=== PATIENT | female | born 1945 | race Caucasian/White ===

== ENCOUNTER → 2017-09-24 | Outpatient (CLI) | payer MEDICARE ==
[~2017-09-24] MED LIST: AEC81 PO; ALEN70TA47 PO; FOLI1TAB15 PO; LEVO25TA54 PO; LEVO500T2 PO; METO50TA18 PO; MYCO500T5 PO; PANT40TA PO; PRAV40TA3 PO; QUIN324C10 PO
== END | disposition home or self-care (01) ==
LOC: RAH 13:35
PROVIDERS: ATTEND Internal Medicine
DX: M47.896 Other spondylosis, lumbar region (principal); M41.86 Other forms of scoliosis, lumbar region; M54.6 Pain in thoracic spine; M25.552 Pain in left hip
CPT/HCPCS: 72070; 72100; 73502

== ENCOUNTER 2017-11-07 12:31 | Emergency (ER) | payer MEDICARE ==
[2017-11-07] MEDS ORDERED: CEFTRIAXONE SODIUM 1 GM ONE (13:02)
[2017-11-07] MEDS ORDERED: SODIUM CHLORIDE 0.9% 1000ML 2,000 ML IV ONE (13:02)
[2017-11-07] MEDS ORDERED: ACETAMINOPHEN 325 MG TAB ONE (13:03)
[2017-11-07 13:30] LABS: BASOPHILS % (AUTO) 0.4 % (0.0-5.0); EOSINOPHILS % (AUTO) 0.1 % (0.0-8.0); LYMPHOCYTES % (AUTO) 6.6 % (21.0-51.0); MEAN CORPUSCULAR HEMOGLOBIN 28.7 pg (27.0-33.0); MEAN CORPUSCULAR HGB CONC 33.4 g/dL (32.0-36.0); MEAN CORPUSCULAR VOLUME 85.8 fL (79-99); MONOCYTES % (AUTO) 6.5 % (3.0-13.0); NEUTROPHILS % (AUTO) 86.4 % (40.0-77.0); PLATELET COUNT (AUTO) 285 K/uL (130-400); RED BLOOD CELL COUNT(AUTO) 3.96 MIL/uL (4.00-5.50); RED CELL DISTRIBUTION WIDTH 14.1 % (11.0-15.5); WHITE BLOOD COUNT (AUTO) 9.1 K/uL (4.8-10.8)
[2017-11-07 13:30] LABS: APPEARANCE,URINE Turbid (CLEAR); BILIRUBIN,URINE Negative (NEGATIVE); COLOR,URINE Yellow (YELLOW); GLUCOSE, URINE (UA) Negative (NEGATIVE); KETONES,URINE 40 mg/dL (NEGATIVE); LEUKOCYTE ESTERASE ,URINE Large (NEGATIVE); NITRATE,URINE Positive (NEGATIVE); OCCULT BLOOD,URINE Small (NEGATIVE); PH,URINE 7.5 (5.0-8.0); PROTEIN,URINE POS 2+ (NEGATIVE)
[2017-11-07 13:45] LABS: WBC,URINE TNTC /HPF (0-1)
[2017-11-07 13:46] LABS: BACTERIA,URINE Moderate /HPF (None Seen); SQUAMOUS EPITHELIAL CELL,UR Rare /HPF (0-2)
[2017-11-07 13:50] LABS: CREATININE 1.1 mg/dL (0.5-1.5); POTASSIUM 3.7 mmol/L (3.5-5.1)
[2017-11-07 14:03] LABS: ALBUMIN 3.3 g/dL (3.5-5.0); BILIRUBIN,TOTAL 0.4 mg/dL (0.2-1.0); CREATINE KINASE MB 0.7 ng/mL (0.5-3.6); TOTAL PROTEIN, SERUM 8.9 g/dL (6.0-8.3)
== END 2017-11-07 16:03 | disposition home or self-care (01) ==
LOC: EDH 12:31
DX: N10 Acute pyelonephritis (principal); E11.9 Type 2 diabetes mellitus without complications; I10 Essential (primary) hypertension; I25.2 Old myocardial infarction; I48.91 Unspecified atrial fibrillation; Z86.73 Personal history of transient ischemic attack (TIA), and cerebral infarction without residual deficits; Z88.2 Allergy status to sulfonamides; Z88.8 Allergy status to other drugs, medicaments and biological substances
CPT/HCPCS: 36415; 71045; 74176; 80053; 81001; 82550; 82553; 83605; 84484; 84702; 85025; 87040 ×2; 87186; 93005; 96374; 99285; J0696; J7030

== ENCOUNTER 2017-11-09 09:46 | Inpatient (IN) | payer MEDICARE ==
[~2017-11-09] VITALS: Ht 152.4 cm; Wt 50.8 kg
[2017-11-09 10:59] LABS: APPEARANCE,URINE Cloudy (CLEAR); BASOPHILS % (AUTO) 1.1 % (0.0-5.0); BILIRUBIN,URINE Negative (NEGATIVE); COLOR,URINE Yellow (YELLOW); EOSINOPHILS % (AUTO) 0.4 % (0.0-8.0); GLUCOSE, URINE (UA) Negative (NEGATIVE); HEMATOCRIT 31.5 % (36-48); KETONES,URINE >=80 mg/dL (NEGATIVE); LEUKOCYTE ESTERASE ,URINE Small (NEGATIVE); LYMPHOCYTES % (AUTO) 34.2 % (21.0-51.0); MEAN CORPUSCULAR HEMOGLOBIN 28.4 pg (27.0-33.0); MEAN CORPUSCULAR HGB CONC 33.3 g/dL (32.0-36.0); MEAN CORPUSCULAR VOLUME 85.2 fL (79-99); MONOCYTES % (AUTO) 33.8 % (3.0-13.0); NEUTROPHILS % (AUTO) 30.5 % (40.0-77.0); NITRATE,URINE Negative (NEGATIVE); NUCLEATED RED BLOOD CELLS 0.1 % (0.0-0.19); OCCULT BLOOD,URINE Small (NEGATIVE); PLATELET COUNT (AUTO) 224 K/uL (130-400); PROTEIN,URINE Trace (NEGATIVE)
[2017-11-09 11:04] LABS: WHITE BLOOD COUNT (AUTO) 1.1 K/uL (4.8-10.8)
[2017-11-09] MEDS ORDERED: SODIUM CHLORIDE 0.9% 1000ML 1,000 ML IV ONE ×2 (11:10→14:45)
[2017-11-09 11:14] LABS: CREATININE 0.9 mg/dL (0.5-1.5); POTASSIUM 3.4 mmol/L (3.5-5.1)
[2017-11-09 11:20] LABS: ALBUMIN 2.5 g/dL (3.5-5.0); BILIRUBIN,TOTAL 0.2 mg/dL (0.2-1.0)
[2017-11-09 11:37] LABS: RBC,URINE 0-1 /HPF (0-1)
[2017-11-09 11:38] LABS: BACTERIA,URINE Few /HPF (None Seen); MUCUS,URINE Moderate LPF (None Seen); SQUAMOUS EPITHELIAL CELL,UR Few /HPF (0-2)
[2017-11-09 11:39] LABS: AMORPHOUS SEDIMENT,UR Few /LPF (None Seen)
[2017-11-09] MEDS ORDERED: LEVOFLOXACIN 500 MG/D5W 100 ML 100 ML ONE (14:45)
[2017-11-09 15:20] VITALS: BP 152/81
[2017-11-09 16:20] VITALS: BP 140/91
[2017-11-09 16:30] VITALS: BP 132/72
[2017-11-09] MEDS: SODIUM CHLORIDE 0.9% 1000ML 1,000 ML IV SCH (17:45)
[2017-11-09] MEDS ORDERED: PHARMACY COMMUNICATION MISC SCH (19:45)
[2017-11-09 20:10] VITALS: BP 146/87
[2017-11-09] MEDS: TBO-FILGRASTIM 480 MCG/0.8 ML ML SQ SCH (21:16)
[2017-11-09 23:50] VITALS: BP 138/68
[2017-11-10 03:53] VITALS: BP 124/70
[2017-11-10] MEDS: SODIUM CHLORIDE 0.9% 1000ML 1,000 ML IV SCH ×2 (07:08→21:12)
[2017-11-10 07:58] VITALS: BP 125/81
[2017-11-10] MEDS: LEVOFLOXACIN 500 MG/D5W 100 ML 100 ML IV SCH (08:25)
[2017-11-10] MEDS ORDERED: QUIN324C10 PO (11:05)
[2017-11-10] MEDS ORDERED: AEC81 PO ×2 (11:05)
[2017-11-10] MEDS ORDERED: METO50TA18 PO (11:05)
[2017-11-10] MEDS ORDERED: MYCO500T5 PO ×2 (11:05)
[2017-11-10] MEDS ORDERED: LEVO25TA54 PO (11:05)
[2017-11-10] MEDS ORDERED: FOLI1TAB15 PO (11:05)
[2017-11-10] MEDS ORDERED: ALEN70TA47 PO (11:05)
[2017-11-10] MEDS ORDERED: PRAV40TA3 PO (11:05)
[2017-11-10 11:40] VITALS: BP 113/62
[2017-11-10] MEDS ORDERED: ACETAMINOPHEN 325 MG TAB PO PRN (14:15)
[2017-11-10] MEDS ORDERED: POTASSIUM CHLORIDE 20MEQ/100ML 100 ML IV PRN (14:15)
[2017-11-10] MEDS ORDERED: POTASSIUM CHLORIDE 10% ELIXIR 20 MEQ/15 ML UDCUP PO PRN (14:15)
[2017-11-10] MEDS ORDERED: ONDANSETRON HCL 4 MG/2 ML VIAL IVP PRN (14:15)
[2017-11-10] MEDS ORDERED: HYDRALAZINE HCL 20 MG/ML VIAL IV PRN (14:15)
[2017-11-10] MEDS ORDERED: LIDOCAINE HCL-MPF 1% 2ML VIAL IVP PRN (14:15)
[2017-11-10] MEDS ORDERED: QUININE SULFATE 324 MG PO PRN (14:58)
[2017-11-10 16:45] VITALS: BP 123/70
[2017-11-10 19:48] VITALS: BP 135/66
[2017-11-10] MEDS: MYCOPHENOLATE MOFETIL 250 MG CAPSULE PO SCH (21:00)
[2017-11-10] MEDS: ATORVASTATIN CALCIUM 10 MG TABLET PO SCH (21:09)
[2017-11-10] MEDS: METOPROLOL TARTRATE 25 MG TAB PO SCH (21:10)
[2017-11-10] MEDS: ENOXAPARIN SODIUM 40 MG/0.4 ML SYRINGE SQ SCH (21:12)
[2017-11-10] MEDS: TBO-FILGRASTIM 480 MCG/0.8 ML ML SQ SCH (21:12)
[2017-11-11] VITALS (7 sets, daily range): BP systolic 107–151; BP diastolic 53–74
[2017-11-11 05:58] LABS: BASOPHILS % (AUTO) 0.2 % (0.0-5.0); EOSINOPHILS % (AUTO) 0.3 % (0.0-8.0); HEMATOCRIT 31.6 % (36-48); LYMPHOCYTES % (AUTO) 5.7 % (21.0-51.0); MEAN CORPUSCULAR HEMOGLOBIN 28.9 pg (27.0-33.0); MEAN CORPUSCULAR HGB CONC 34.2 g/dL (32.0-36.0); MEAN CORPUSCULAR VOLUME 84.6 fL (79-99); MONOCYTES % (AUTO) 5.5 % (3.0-13.0); NEUTROPHILS % (AUTO) 88.3 % (40.0-77.0); PLATELET COUNT (AUTO) 247 K/uL (130-400); RED BLOOD CELL COUNT(AUTO) 3.74 MIL/uL (4.00-5.50); RED CELL DISTRIBUTION WIDTH 13.9 % (11.0-15.5); WHITE BLOOD COUNT (AUTO) 22.3 K/uL (4.8-10.8)
[2017-11-11 06:02] LABS: CREATININE 0.9 mg/dL (0.5-1.5); POTASSIUM 3.3 mmol/L (3.5-5.1)
[2017-11-11] MEDS: LEVOTHYROXINE 25 MCG TABLET PO SCH (06:35)
[2017-11-11] MEDS: LEVOFLOXACIN 500 MG/D5W 100 ML 100 ML IV SCH (08:16)
[2017-11-11] MEDS: PANTOPRAZOLE SODIUM 40 MG TABLET.DR PO SCH (08:17)
[2017-11-11] MEDS: FOLIC ACID 1 MG TABLET PO SCH (08:19)
[2017-11-11] MEDS: ASPIRIN 81 MG EC TAB PO SCH (08:19)
[2017-11-11] MEDS: METOPROLOL TARTRATE 25 MG TAB PO SCH ×2 (08:21→22:36)
[2017-11-11] MEDS: ENOXAPARIN SODIUM 40 MG/0.4 ML SYRINGE SQ SCH (09:00)
[2017-11-11] MEDS: MYCOPHENOLATE MOFETIL 250 MG CAPSULE PO SCH ×2 (11:11→22:38)
[2017-11-11] MEDS: SODIUM CHLORIDE 0.9% 1000ML 1,000 ML IV SCH (13:06)
[2017-11-11] MEDS: POTASSIUM CHLORIDE 20 MEQ ERTAB PO PRN (22:37)
[2017-11-11] MEDS: ATORVASTATIN CALCIUM 10 MG TABLET PO SCH (22:38)
[2017-11-12] MEDS: POTASSIUM CHLORIDE 20 MEQ ERTAB PO PRN (01:38)
[2017-11-12] MEDS: SODIUM CHLORIDE 0.9% 1000ML 1,000 ML IV SCH ×2 (01:42→21:07)
[2017-11-12 04:30] VITALS: BP 145/76
[2017-11-12 05:57] LABS: BASOPHILS % (AUTO) 0.4 % (0.0-5.0); EOSINOPHILS % (AUTO) 0.5 % (0.0-8.0); HEMATOCRIT 28.4 % (36-48); LYMPHOCYTES % (AUTO) 6.5 % (21.0-51.0); MEAN CORPUSCULAR HEMOGLOBIN 28.6 pg (27.0-33.0); MEAN CORPUSCULAR HGB CONC 34.2 g/dL (32.0-36.0); MEAN CORPUSCULAR VOLUME 83.7 fL (79-99); MONOCYTES % (AUTO) 5.9 % (3.0-13.0); NEUTROPHILS % (AUTO) 86.7 % (40.0-77.0); PLATELET COUNT (AUTO) 235 K/uL (130-400); RED BLOOD CELL COUNT(AUTO) 3.39 MIL/uL (4.00-5.50); RED CELL DISTRIBUTION WIDTH 14.2 % (11.0-15.5); WHITE BLOOD COUNT (AUTO) 23.4 K/uL (4.8-10.8)
[2017-11-12 06:07] LABS: CREATININE 0.7 mg/dL (0.5-1.5); POTASSIUM 3.8 mmol/L (3.5-5.1)
[2017-11-12] MEDS: LEVOTHYROXINE 25 MCG TABLET PO SCH (07:13)
[2017-11-12 08:00] VITALS: BP 144/72
[2017-11-12] MEDS: LEVOFLOXACIN 500 MG/D5W 100 ML 100 ML IV SCH (09:23)
[2017-11-12] MEDS: FOLIC ACID 1 MG TABLET PO SCH (09:24)
[2017-11-12] MEDS: ASPIRIN 81 MG EC TAB PO SCH (09:24)
[2017-11-12] MEDS: MYCOPHENOLATE MOFETIL 250 MG CAPSULE PO SCH ×2 (09:24→21:05)
[2017-11-12] MEDS: METOPROLOL TARTRATE 25 MG TAB PO SCH ×2 (09:25→21:06)
[2017-11-12] MEDS: PANTOPRAZOLE SODIUM 40 MG TABLET.DR PO SCH (09:25)
[2017-11-12] MEDS: ENOXAPARIN SODIUM 40 MG/0.4 ML SYRINGE SQ SCH (09:26)
[2017-11-12 12:00] VITALS: BP 118/53
[2017-11-12 16:00] VITALS: BP 145/75
[2017-11-12 19:00] VITALS: BP 120/60
[2017-11-12 20:00] VITALS: BP 142/74
[2017-11-12] MEDS: ATORVASTATIN CALCIUM 10 MG TABLET PO SCH (21:05)
[2017-11-13] VITALS (7 sets, daily range): BP systolic 120–151; BP diastolic 60–79
[2017-11-13 06:11] LABS: BASOPHILS % (AUTO) 0.5 % (0.0-5.0); EOSINOPHILS % (AUTO) 0.6 % (0.0-8.0); HEMATOCRIT 30.9 % (36-48); LYMPHOCYTES % (AUTO) 8.7 % (21.0-51.0); MEAN CORPUSCULAR HEMOGLOBIN 29.2 pg (27.0-33.0); MEAN CORPUSCULAR HGB CONC 34.6 g/dL (32.0-36.0); MEAN CORPUSCULAR VOLUME 84.4 fL (79-99); MONOCYTES % (AUTO) 6.5 % (3.0-13.0); NEUTROPHILS % (AUTO) 83.7 % (40.0-77.0); PLATELET COUNT (AUTO) 274 K/uL (130-400); RED BLOOD CELL COUNT(AUTO) 3.66 MIL/uL (4.00-5.50); RED CELL DISTRIBUTION WIDTH 14.4 % (11.0-15.5); WHITE BLOOD COUNT (AUTO) 14.7 K/uL (4.8-10.8)
[2017-11-13 06:23] LABS: CREATININE 0.9 mg/dL (0.5-1.5)
[2017-11-13] MEDS: LEVOTHYROXINE 25 MCG TABLET PO SCH (06:58)
[2017-11-13] MEDS: LEVOFLOXACIN 500 MG/D5W 100 ML 100 ML IV SCH (08:39)
[2017-11-13] MEDS: SODIUM CHLORIDE 0.9% 1000ML 1,000 ML IV SCH ×2 (08:39→15:05)
[2017-11-13] MEDS: PANTOPRAZOLE SODIUM 40 MG TABLET.DR PO SCH (08:40)
[2017-11-13] MEDS: METOPROLOL TARTRATE 25 MG TAB PO SCH ×2 (08:40→20:22)
[2017-11-13] MEDS: MYCOPHENOLATE MOFETIL 250 MG CAPSULE PO SCH ×2 (08:40→20:22)
[2017-11-13] MEDS: ENOXAPARIN SODIUM 40 MG/0.4 ML SYRINGE SQ SCH (08:41)
[2017-11-13] MEDS: FOLIC ACID 1 MG TABLET PO SCH (08:41)
[2017-11-13] MEDS: ASPIRIN 81 MG EC TAB PO SCH (08:41)
[2017-11-13] MEDS: ATORVASTATIN CALCIUM 10 MG TABLET PO SCH (20:22)
[2017-11-14 03:00] VITALS: BP 124/69
[2017-11-14 05:27] LABS: BASOPHILS % (AUTO) 0.8 % (0.0-5.0); EOSINOPHILS % (AUTO) 1.7 % (0.0-8.0); HEMATOCRIT 29.9 % (36-48); LYMPHOCYTES % (AUTO) 20.7 % (21.0-51.0); MEAN CORPUSCULAR HEMOGLOBIN 28.1 pg (27.0-33.0); MEAN CORPUSCULAR HGB CONC 33.4 g/dL (32.0-36.0); MONOCYTES % (AUTO) 14.5 % (3.0-13.0); NEUTROPHILS % (AUTO) 62.3 % (40.0-77.0); PLATELET COUNT (AUTO) 285 K/uL (130-400); RED BLOOD CELL COUNT(AUTO) 3.55 MIL/uL (4.00-5.50); RED CELL DISTRIBUTION WIDTH 14.3 % (11.0-15.5); WHITE BLOOD COUNT (AUTO) 6.9 K/uL (4.8-10.8)
[2017-11-14 05:59] LABS: B-TYPE NATRIURETIC PEPTIDE 14 pg/mL (0-100)
[2017-11-14 07:00] VITALS: BP 131/74
[2017-11-14] MEDS: LEVOTHYROXINE 25 MCG TABLET PO SCH (07:32)
[2017-11-14] MEDS: FOLIC ACID 1 MG TABLET PO SCH (08:52)
[2017-11-14] MEDS: PANTOPRAZOLE SODIUM 40 MG TABLET.DR PO SCH (08:52)
[2017-11-14] MEDS: ASPIRIN 81 MG EC TAB PO SCH (08:52)
[2017-11-14] MEDS: MYCOPHENOLATE MOFETIL 250 MG CAPSULE PO SCH (08:53)
[2017-11-14] MEDS: METOPROLOL TARTRATE 25 MG TAB PO SCH (08:53)
[2017-11-14] MEDS: ENOXAPARIN SODIUM 40 MG/0.4 ML SYRINGE SQ SCH (08:53)
[2017-11-14] MEDS: LEVOFLOXACIN 500 MG/D5W 100 ML 100 ML IV SCH (08:53)
[2017-11-14 12:14] VITALS: BP 129/68
[2017-11-14] MEDS ORDERED: LEVO500T2 PO (14:15)
[2017-11-14] MEDS ORDERED: PANT40TA PO (14:15)
[2017-11-17] MEDS ORDERED: ALENDRONATE SODIUM 35 MG TAB PO SCH (06:30)
== END 2017-11-14 16:15 | disposition home or self-care (01) | DRG 872 ==
LOC: EDH 09:46 → EDHIP 12:10 → 3DH 17:02
PROVIDERS: ADMIT Family Medicine; ATTEND Family Medicine
DX: A41.9 Sepsis, unspecified organism (principal); N39.0 Urinary tract infection, site not specified; I48.91 Unspecified atrial fibrillation; B27.00 Gammaherpesviral mononucleosis without complication; I10 Essential (primary) hypertension; K57.30 Diverticulosis of large intestine without perforation or abscess without bleeding; B96.20 Unspecified Escherichia coli [E. coli] as the cause of diseases classified elsewhere; E87.6 Hypokalemia; D89.89 Other specified disorders involving the immune mechanism, not elsewhere classified; I25.2 Old myocardial infarction; Z86.74 Personal history of sudden cardiac arrest; Z88.1 Allergy status to other antibiotic agents; Z88.8 Allergy status to other drugs, medicaments and biological substances; Z90.710 Acquired absence of both cervix and uterus; Z86.73 Personal history of transient ischemic attack (TIA), and cerebral infarction without residual deficits; Z87.442 Personal history of urinary calculi; Z82.49 Family history of ischemic heart disease and other diseases of the circulatory system
CPT/HCPCS: 36415; 71045; 74176; 80048; 80053; 81001; 82550; 82553; 83605; 83690; 83880; 84484; 84702; 85025; 87040; 87088; 87186; 93005; 96374; J0696; J1650; J1956; J7030; J7517

== ENCOUNTER → 2018-03-27 | Outpatient (CLI) | payer MEDICARE | END | disposition home or self-care (01) | LOC: RAH 10:46 | PROVIDERS: ATTEND Internal Medicine | DX: R13.10 Dysphagia, unspecified (principal); R63.3 Feeding difficulties | CPT/HCPCS: G8996; G8997; G8998; 74230; 92611 ==

== ENCOUNTER → 2018-04-10 | Outpatient (CLI) | payer MEDICARE | END | disposition home or self-care (01) | LOC: RAH 15:48 | PROVIDERS: ATTEND Internal Medicine | DX: R29.6 Repeated falls (principal); R55 Syncope and collapse; K59.00 Constipation, unspecified | CPT/HCPCS: 70450; 74018 ==